=== PATIENT | female | born 1940 | race Caucasian/White ===

== ENCOUNTER → 2016-05-31 | Outpatient (CLI) | payer MEDICARE, BC ==
[~2016-05-31] MED LIST: ADVAIR 100/501 E1 INH; DIOVAN80 MG PO; HYDROCODONE BIT1 T11 PO; HYDRODIURIL25 MG PO; INDOCIN50 MG PO; LEVOTHYROXINE0.1 MG PO; MEDROL DOSEPAK4 MG PO; MULTIPLE VITAMI1 T17 PO; OSCAL/D,OYSTER250 MG PO; PRILOSEC20 M1 PO; TESSALON PERLE100 M1 PO; TESSALON PERLE100 MG PO
== END | disposition home or self-care (01) ==
LOC: MAMMO 05-28 14:30
DX: Z12.31 Encounter for screening mammogram for malignant neoplasm of breast (principal); R92.1 Mammographic calcification found on diagnostic imaging of breast

== ENCOUNTER → 2017-03-14 | Outpatient (CLI) | payer MEDICARE, BC ==
[2017-03-14 08:54] LABS: HEMATOCRIT 34.6 % (37.0-47.0); HEMOGLOBIN 11.5 g/dl (12.0-16.0); MEAN CELL VOLUME 96.6 fl (81.0-99.0); MEAN CORPUSCULAR HGB 32.1 pg (27.0-31.0); MEAN CORPUSCULAR HGB CONC 33.2 g/dl (33.0-37.0); MEAN PLATELET VOLUME 10.2 fl (9.6-12.3); RED BLOOD COUNT 3.58 10*6/uL (4.10-5.10); RED CELL DISTRI WIDTH 13.3 % (0-14.5); WHITE BLOOD COUNT 4.7 10*3/uL (4.8-10.8)
[2017-03-14 09:15] LABS: ALBUMIN 3.6 gm/dl (3.1-4.5); CREATININE 1.83 mg/dL (0.55-1.02); POTASSIUM 4.4 mmol/L (3.5-5.1); TOTAL PROTEIN 6.9 gm/dL (6.4-8.2)
== END | disposition home or self-care (01) ==
LOC: LAB 02:00
PROVIDERS: Family Medicine
DX: I12.9 Hypertensive chronic kidney disease with stage 1 through stage 4 chronic kidney disease, or unspecified chronic kidney disease (principal); N18.3 Chronic kidney disease, stage 3 (moderate); J44.9 Chronic obstructive pulmonary disease, unspecified

== ENCOUNTER → 2017-04-23 | Outpatient (CLI) | payer MEDICARE, BC ==
[2017-04-23 10:13] LABS: HEMATOCRIT 34.5 % (37.0-47.0); HEMOGLOBIN 11.3 g/dl (12.0-16.0); MEAN CELL VOLUME 97.7 fl (81.0-99.0); MEAN CORPUSCULAR HGB CONC 32.8 g/dl (33.0-37.0); RED BLOOD COUNT 3.53 10*6/uL (4.10-5.10); RED CELL DISTRI WIDTH 13.6 % (0-14.5); WHITE BLOOD COUNT 5.6 10*3/uL (4.8-10.8)
[2017-04-23 10:41] LABS: ALBUMIN 3.9 gm/dl (3.1-4.5); CREATININE 1.74 mg/dL (0.55-1.02); POTASSIUM 4.3 mmol/L (3.5-5.1)
[2017-04-23 10:42] LABS: TOTAL PROTEIN 7.3 gm/dL (6.4-8.2)
== END | disposition home or self-care (01) ==
LOC: LAB 09:42
PROVIDERS: Family Medicine
DX: E78.00 Pure hypercholesterolemia, unspecified (principal); N18.3 Chronic kidney disease, stage 3 (moderate); D64.9 Anemia, unspecified; R53.83 Other fatigue

== ENCOUNTER → 2017-07-24 | Outpatient (CLI) | payer MEDICARE, BC ==
[2017-07-24 09:31] LABS: POTASSIUM 4.2 mmol/L (3.5-5.1)
[2017-07-24 09:42] LABS: ALBUMIN 3.8 gm/dl (3.1-4.5); CREATININE 1.8 mg/dL (0.55-1.02); PHOSPHOROUS 3.1 mg/dL (2.5-4.9)
== END | disposition home or self-care (01) ==
LOC: LAB 08:19
PROVIDERS: Family Medicine
DX: N18.3 Chronic kidney disease, stage 3 (moderate) (principal)

== ENCOUNTER → 2018-01-22 | Outpatient (CLI) | payer MEDICARE, BC ==
[2018-01-22 09:07] LABS: HEMATOCRIT 35.5 % (37.0-47.0); HEMOGLOBIN 11.8 g/dl (12.0-16.0); MEAN CELL VOLUME 99.2 fl (81.0-99.0); MEAN CORPUSCULAR HGB CONC 33.2 g/dl (33.0-37.0); MEAN PLATELET VOLUME 9.5 fl (9.6-12.3); RED BLOOD COUNT 3.58 10*6/uL (4.10-5.10); RED CELL DISTRI WIDTH 13.2 % (0-14.5); WHITE BLOOD COUNT 6.1 10*3/uL (4.8-10.8)
[2018-01-22 09:33] LABS: ALBUMIN 3.8 gm/dl (3.1-4.5); POTASSIUM 4.7 mmol/L (3.5-5.1); TOTAL PROTEIN 7.4 gm/dL (6.4-8.2)
== END | disposition home or self-care (01) ==
LOC: LAB 01:02
PROVIDERS: Family Medicine
DX: I12.9 Hypertensive chronic kidney disease with stage 1 through stage 4 chronic kidney disease, or unspecified chronic kidney disease (principal); N18.3 Chronic kidney disease, stage 3 (moderate); E78.00 Pure hypercholesterolemia, unspecified

== ENCOUNTER → 2018-09-02 | Outpatient (CLI) | payer MEDICARE, BC | END | disposition home or self-care (01) | LOC: RAD 15:47 | DX: R06.02 Shortness of breath (principal); R06.2 Wheezing ==

== ENCOUNTER → 2019-01-22 | Outpatient (CLI) | payer MEDICARE, BC ==
[2019-01-22 09:15] LABS: HEMATOCRIT 33.8 % (37.0-47.0); MEAN CORPUSCULAR HGB 32.5 pg (27.0-31.0); MEAN CORPUSCULAR HGB CONC 32.5 g/dl (33.0-37.0); MEAN PLATELET VOLUME 10.1 fl (9.6-12.3); RED BLOOD COUNT 3.38 10*6/uL (4.10-5.10); WHITE BLOOD COUNT 5.2 10*3/uL (4.8-10.8)
[2019-01-22 09:51] LABS: ALBUMIN 3.7 gm/dl (3.1-4.5); CREATININE 2.08 mg/dL (0.55-1.02); FREE T4 0.98 ng/dl (0.76-1.46); POTASSIUM 4.4 mmol/L (3.5-5.1); TOTAL PROTEIN 7.3 gm/dL (6.4-8.2)
[2019-01-22 09:56] LABS: THYROID STIM HORMONE (HS) 4.73 uIU/ml (0.358-4.75)
== END | disposition home or self-care (01) ==
LOC: LAB 08:42
PROVIDERS: Nurse Practitioner Family
DX: E03.9 Hypothyroidism, unspecified (principal); I10 Essential (primary) hypertension; E55.9 Vitamin D deficiency, unspecified

== ENCOUNTER → 2019-04-20 | Outpatient (CLI) | payer MEDICARE, BC ==
[2019-04-20 09:54] LABS: HEMATOCRIT 35.2 % (37.0-47.0); HEMOGLOBIN 11.2 g/dl (12.0-16.0); MEAN CELL VOLUME 101.4 fl (81.0-99.0); MEAN CORPUSCULAR HGB 32.3 pg (27.0-31.0); MEAN CORPUSCULAR HGB CONC 31.8 g/dl (33.0-37.0); MEAN PLATELET VOLUME 9.9 fl (9.6-12.3); RED BLOOD COUNT 3.47 10*6/uL (4.10-5.10); RED CELL DISTRI WIDTH 13.7 % (0-14.5); WHITE BLOOD COUNT 10.9 10*3/uL (4.8-10.8)
[2019-04-20 10:13] LABS: POTASSIUM 4.4 mmol/L (3.5-5.1)
[2019-04-20 10:23] LABS: URIC ACID 5.9 mg/dL (2.6-6.0)
[2019-04-20 10:25] LABS: URINE CREATININE RANDOM 94.3 mg/dL
[2019-04-20 10:31] LABS: ALBUMIN 3.6 gm/dl (3.1-4.5); CREATININE 2.01 mg/dL (0.55-1.02); FREE T4 1.22 ng/dl (0.76-1.46); THYROID STIM HORMONE (HS) 4.18 uIU/ml (0.358-4.75); TOTAL PROTEIN 6.9 gm/dL (6.4-8.2)
[2019-04-20 11:15] LABS: FERRITIN 345.4 ng/mL (10.0-291.0)
[2019-04-20 11:16] LABS: PTH INTACT 239.7 pg/mL (18.5-88.0)
[2019-04-20 13:15] LABS: BACTERIA 3+; WBC 41-50 wbc/hpf (0-5)
[2019-04-20 13:16] LABS: CLARITY SL CLOUDY (CLEAR); COLOR YELLOW (YELLOW)
[2019-04-20 13:17] LABS: BILIRUBIN NEGATIVE (NEGATIVE); BLOOD TRACE-INTACT (NEGATIVE); GLUCOSE NEGATIVE (NEGATIVE); KETONE NEGATIVE (NEGATIVE); LEUKO ESTERASE 2+ (NEGATIVE); NITRITE NEGATIVE (NEGATIVE); UROBILINOGEN 0.2 E.U./dl (0.2-1.0)
== END | disposition home or self-care (01) ==
LOC: LAB 00:11
PROVIDERS: Family Medicine; Internal Medicine Nephrology
DX: D63.1 Anemia in chronic kidney disease (principal); N18.3 Chronic kidney disease, stage 3 (moderate); E78.00 Pure hypercholesterolemia, unspecified; E55.9 Vitamin D deficiency, unspecified; N25.81 Secondary hyperparathyroidism of renal origin; M10.9 Gout, unspecified; Z79.899 Other long term (current) drug therapy

== ENCOUNTER 2019-08-06 18:15 | Emergency (ER) | payer MEDICARE, BC ==
[~2019-08-06] VITALS: Ht 175.2 cm; Wt 90.7 kg
[2019-08-06] MEDS ORDERED: 3-DAY VAGINAL C21 GM V (19:10)
[2019-08-06] MEDS ORDERED: NYSTATIN CREAM15 GM T (19:10)
[2019-08-06] MEDS ORDERED: VISTARIL25 MG PO (19:11)
[2019-08-06 19:58] LABS: BILIRUBIN NEGATIVE (NEGATIVE); BLOOD 1+ (NEGATIVE); CLARITY CLEAR (CLEAR); COLOR YELLOW (YELLOW); GLUCOSE TRACE (NEGATIVE); KETONE NEGATIVE (NEGATIVE); LEUKO ESTERASE 1+ (NEGATIVE); NITRITE NEGATIVE (NEGATIVE); SPECIFIC GRAVITY 1.025 (1.005-1.030); UROBILINOGEN 0.2 E.U./dl (0.2-1.0)
[2019-08-06 20:01] LABS: BACTERIA 1+; EPITHELIAL CELLS 16-20; WBC 21-30 wbc/hpf (0-5)
== END 2019-08-06 19:55 ==
LOC: ED 18:15
PROVIDERS: Nurse Practitioner Family
DX: L30.8 Other specified dermatitis (principal); B37.9 Candidiasis, unspecified; Z88.1 Allergy status to other antibiotic agents; Z79.899 Other long term (current) drug therapy

== ENCOUNTER 2019-08-10 11:23 | Inpatient (IN) | payer MEDICARE, BC ==
[~2019-08-10] VITALS: Ht 175.2 cm; Wt 93.6 kg
[~2019-08-10 11:23] MED LIST changes: +3-DAY VAGINAL C21 GM V; +NYSTATIN CREAM15 GM T; +VISTARIL25 MG PO
[2019-08-10 11:32] VITALS: BP 110/55; BP 132/93
[2019-08-10 12:03] LABS: BASO % 0.4 % (0.0-1.0); EOS % 0.1 % (1.0-4.0); HEMATOCRIT 30.3 % (37.0-47.0); LYMPH # 0.9 10*3/uL (1.3-4.4); LYMPH % 9.1 % (27.0-41.0); MEAN CELL VOLUME 100.7 fl (81.0-99.0); MEAN CORPUSCULAR HGB 31.9 pg (27.0-31.0); MEAN CORPUSCULAR HGB CONC 31.7 g/dl (33.0-37.0); MEAN PLATELET VOLUME 10.2 fl (9.6-12.3); MONO # 0.6 10*3/uL (0.1-1.0); MONO % 6.1 % (3.0-9.0); NEUT # 7.8 10*3/uL (2.3-7.9); NEUT % 83.1 % (47.0-73.0); PLATELET COUNT AUTOMATED 365 10*3/uL (130-400); RED BLOOD COUNT 3.01 10*6/uL (4.10-5.10); RED CELL DISTRI WIDTH 13.1 % (0-14.5); WHITE BLOOD COUNT 9.4 10*3/uL (4.8-10.8)
[2019-08-10 12:13] LABS: ACT PARTIAL THROMBO TIME 28.4 SECONDS (20.0-32.1)
[2019-08-10 12:20] LABS: ALBUMIN 2.7 gm/dl (3.1-4.5); ALKALINE PHOSPHATASE 69 U/L (45-117); BUN 44 mg/dl (7-24); CHLORIDE 114 mmol/L (98-107); CREATININE 3.51 mg/dL (0.55-1.02); LIPASE 81 U/L (73-393); POTASSIUM 4.5 mmol/L (3.5-5.1); SGOT/AST 49 IU/L (3-35); SGPT/ALT 63 U/L (12-78); SODIUM 140 mmol/L (136-145); TOTAL PROTEIN 7.3 gm/dL (6.4-8.2); TROPONIN I < 0.015 ng/ml (<0.045)
--- NOTE | 2019-08-10 13:06 | NUR ---
YEAST RASH TO ABDOMINAL FOLD AND GROIN BILATERALLY. AREA IS RED BUT BLANCHABLE. NO OPEN AREAS NOTED.
[2019-08-10 14:09] LABS: BILIRUBIN NEGATIVE (NEGATIVE); BLOOD 1+ (NEGATIVE); CLARITY CLOUDY (CLEAR); COLOR YELLOW (YELLOW); GLUCOSE NEGATIVE (NEGATIVE); KETONE NEGATIVE (NEGATIVE); SPECIFIC GRAVITY 1.025 (1.005-1.030)
[2019-08-10 14:10] LABS: LEUKO ESTERASE 2+ (NEGATIVE); NITRITE NEGATIVE (NEGATIVE); UROBILINOGEN 0.2 E.U./dl (0.2-1.0)
[2019-08-10 14:12] LABS: BACTERIA 4+; RBC 21-30 rbc/hpf (0-2); WBC TNTC wbc/hpf (0-5)
[2019-08-10] MEDS ORDERED: PROAIR HFA8.5 GM INH (15:03)
[2019-08-10] MEDS ORDERED: LOSARTAN POTAS100 M1 PO (15:04)
[2019-08-10 16:00] VITALS: BP 132/68
[2019-08-10 20:00] VITALS: BP 130/63
--- NOTE | 2019-08-10 20:55 | NUR ---
PATIENT MEDICATED WITH VISTAR[facility] FOR C/O ITCHINESS. WILL CHECK EFFECTIVENESS.
[2019-08-11] VITALS: BP 131/61
--- NOTE | 2019-08-11 05:48 | NUR ---
DOMINIQUE RIGGINS [id number] Please refer to the physician's history and physical for past medical history, comorbid conditions, and allergies. Diagnosis: JANET,UTI,EXTENDED SPECTRUM BETA-LACTAMASE PRODUCING Raheel Score: 23,LOW OR NO RISK WOUND DESCRIPTIONS: Wound Number:1 Suprapubic area red and blanchable areas noted. No drainage noted at time of assessment. No odor noted at time of assessment. Wound Number: 2 Location of the wound: left and right buttocks Type of wound: fungal Thickness: Partial Size: 9.5cm x 11.0cm x 0.1cm Tunneling: none Undermining: none Sinus Tract: none Presence of Exudate: Serosanguneious Amount: Light Color: Red Odor: None Periwound Skin Appearance: Normal Wound edges: approximated Pain (associated with wound): none at time of assessment How does patient state this happened? pt states this started after she received antibiotic she stated she even followed up with the gyno and they prescriber her a dose of diflucan and it helped. Surface the patient is resting on: Isoflex SKIN PREVENTION RECOMMENDATION: 1. Pressure redistribution support surface as appropriate 2. Elevate heels 3. Remove boots/TEDS every shift and reapply 4. Head of bed 30 degrees as tolerated 5. Assess nutrition and hydration 6. Manage moisture 7. Avoid the use of containment devices while in bed 8. Use absorptive products on surfaces limit layers of linens on bed 9. Turn and reposition every 1-2 hours in bed and every 1 hour in chair as tolerated 10. Weight shifts every 15 minutes while up in chair 11. Offloading with pillows or device to keep heels elevated off bed 12. Monitor skin at least every shift 13. Inspect under medical devices twice a day WOUND TREATMENT RECOMMENDATIONS: d/c nystatin cream may need oral antifungal medications. Wheelchair cushion when oob. Patient states if areas gets worse she will follow up in the wound care center.
[2019-08-11 07:10] LABS: CREATININE 3.33 mg/dL (0.55-1.02); POTASSIUM 4.4 mmol/L (3.5-5.1)
--- NOTE | 2019-08-11 07:51 | NUR ---
Nursing screen received and chart reviewed. Patient admitted for a UTI. If patient has a decline in ADLs, transfers, or functional mobility, please send OT orders. Thank you. Brook Kwan, OTR/L
--- NOTE | 2019-08-11 07:52 | NUR ---
PHYSICAL THERAPY Screen received pt admitted from home with UTI +ESBL with acute cystitis. Please consult PT if pt has a decline in functional status below baseline thank you. Tari Moore PT
[2019-08-11 08:00] VITALS: BP 130/62
--- NOTE | 2019-08-11 09:00 | NUR ---
Strip Polisher in to talk to patient. Patient states lives at home with her . There are basement steps in the home. Physician: Dr. Javi Srinivasan [facility] Home health services: none Patient's level of ADLs: INDEPENDENT Patient has working utilities: yes DME: [facility] Follow-up physician's appointment after d/c: she prefers to make her own follow up appt after discharge Does patient want to access PORTAL?: no Discharge plan discussed with patient. She lives at home with her . She is independent in her ADLs and ambulation. Discussed home health care services if she needed home IV antibiotics and she is agreeable. When provided with a list of agencies she chose [facility]. When medically stable she will be discharged to home. She states either her son or [id number] will provide transportation on discharge. FREEMAN STARR
[2019-08-11 12:00] VITALS: BP 140/76
[2019-08-11 16:00] VITALS: BP 124/66
[2019-08-11 20:00] VITALS: BP 138/60
--- NOTE | 2019-08-11 21:36 | NUR ---
PATIENT C/O ITCHINESS. MEDICATED WITH VISTARIL PER REQUEST. WILL CHECK EFFECTIVENESS.
[2019-08-12] VITALS: BP 151/70
--- NOTE | 2019-08-12 | NUR ---
PATIENT STATES VISTARIL WAS EFFECTIVE.
[2019-08-12 08:00] VITALS: BP 154/74
--- NOTE | 2019-08-12 08:00 | NUR ---
Patient resting quietly with no c/o discomfort. Respirations easy and regular. Vital signs stable. No overt distress. LUCY WASHINGTON
[2019-08-12 08:46] LABS: CREATININE 3.25 mg/dL (0.55-1.02); POTASSIUM 4.9 mmol/L (3.5-5.1)
--- NOTE | 2019-08-12 09:00 | NUR ---
Film Rental Clerk in to see patient. No new needs or request at this time. When medically stable she will be discharged to home with [facility] services.
[2019-08-12 12:00] VITALS: BP 156/70
[2019-08-12 16:00] VITALS: BP 153/78
[2019-08-12 20:00] VITALS: BP 176/82
[2019-08-13] VITALS: BP 160/82
[2019-08-13 07:34] LABS: CREATININE 2.69 mg/dL (0.55-1.02); POTASSIUM 4.7 mmol/L (3.5-5.1)
--- NOTE | 2019-08-13 07:35 | NUR ---
Shift chart check completed.
[2019-08-13 08:00] VITALS: BP 150/84
--- NOTE | 2019-08-13 08:30 | NUR ---
PT RESTING IN BED. VOICES NO CONCERNS AT THIS TIME. RESPS EASY AND NON LABORED. NO S/S OF DISTRESS NOTED.VSS. WHITE BOARD UPDATED.POC DISCUSSED W PT. CALL LIGHT RONNY LOTT. PT STATES SHE WANTS TO GO HOME TODAY.
--- NOTE | 2019-08-13 09:00 | NUR ---
Radio Presenter in to see patient. No new needs or request at this time. She has a midline in. No scripts in chart for IV antibiotics. When medically stable she will be discharged to home with [facility].
--- NOTE | 2019-08-13 11:31 | NUR ---
No script in chart. Notified Dr. Ramos who is working with Dr. Flores.
--- NOTE | 2019-08-13 11:37 | NUR ---
Discussed antibiotic prescription with Dr. Flores. Awaiting script.
--- NOTE | 2019-08-13 11:48 | NUR ---
Faxed home health order to [facility] and faxed [facility] to check cost for ertapenem 500 mg IV daily. Discussed discharge today or tomorrow with Dr. Siegel and she is not ready to be discharged today.
[2019-08-13] MEDS ORDERED: ERTAPENEM1 GM IV (11:52)
[2019-08-13 12:00] VITALS: BP 154/64; BP 171/74
--- NOTE | 2019-08-13 14:45 | NUR ---
Received call from Lydia at [facility] patient's antibiotic is covered at 100%.
--- NOTE | 2019-08-13 15:19 | NUR ---
Notified patient her IV antibiotics are covered at 100% and that [facility] and [facility] will be reaching out to her for her start of care. Spoke to Verna at [facility] and patient is being put on OV schedule for Friday.
[2019-08-13 16:00] VITALS: BP 148/76; BP 168/77
--- NOTE | 2019-08-13 18:04 | NUR ---
PT RESTING IN CHAIR. VOICES NO CONCERNS AT THIS TIME. RESPS EASY AND NON LABORED. NO S/S OF DISTRESS NOTED.VSS. CALL LIGHT WITHIN REACH
[2019-08-13 20:00] VITALS: BP 180/75
[2019-08-14] VITALS: BP 177/78
[2019-08-14] MEDS ORDERED: AMLODIPINE BESYL5 MG PO (05:55)
[2019-08-14] MEDS ORDERED: CLONIDINE HYDR0.1 MG PO (06:04)
[2019-08-14 07:06] LABS: POTASSIUM 4.8 mmol/L (3.5-5.1)
[2019-08-14 07:15] LABS: CREATININE 2.43 mg/dL (0.55-1.02)
--- NOTE | 2019-08-14 10:00 | NUR ---
Discharge instructions reviewed with patient/family. Patient receptive and verbalizes understanding. Follow-up care arranged. Written instructions given to patient/family. ISATU LANGSTON
--- NOTE | 2019-08-14 12:02 | NUR ---
[facility] AND [facility] BOTH NOTIFIED THAT PT WAS DISCHARGED TODAY.
== END 2019-08-14 10:00 | disposition home or self-care (01) | DRG 682 ==
LOC: ED 11:23 → EDHOLD 12:31 → 5E 12:31
PROVIDERS: Nurse Practitioner Family; ADMIT Internal Medicine
DX: N17.0 Acute kidney failure with tubular necrosis (principal); E43 Unspecified severe protein-calorie malnutrition; N30.00 Acute cystitis without hematuria; Z16.12 Extended spectrum beta lactamase (ESBL) resistance; N18.4 Chronic kidney disease, stage 4 (severe); E03.9 Hypothyroidism, unspecified; B96.20 Unspecified Escherichia coli [E. coli] as the cause of diseases classified elsewhere; E66.9 Obesity, unspecified; J44.9 Chronic obstructive pulmonary disease, unspecified; I12.9 Hypertensive chronic kidney disease with stage 1 through stage 4 chronic kidney disease, or unspecified chronic kidney disease; K21.0 Gastro-esophageal reflux disease with esophagitis; D64.9 Anemia, unspecified; B37.3 Candidiasis of vulva and vagina; B95.1 Streptococcus, group B, as the cause of diseases classified elsewhere; Z88.1 Allergy status to other antibiotic agents; Z90.710 Acquired absence of both cervix and uterus; Z79.899 Other long term (current) drug therapy; Z68.30 Body mass index [BMI] 30.0-30.9, adult

== ENCOUNTER 2019-08-26 17:28 | Inpatient (IN) | payer MEDICARE, BC ==
[~2019-08-26] VITALS: Ht 175.3 cm; Wt 93.9 kg
[~2019-08-26 17:28] MED LIST changes: +AMLODIPINE BESYL5 MG PO; +CLONIDINE HYDR0.1 MG PO; +ERTAPENEM1 GM IV; +LOSARTAN POTAS100 M1 PO; +PROAIR HFA8.5 GM INH
[2019-08-26 17:38] VITALS: BP 131/70
[2019-08-26 18:07] LABS: BILIRUBIN NEGATIVE (NEGATIVE); BLOOD 1+ (NEGATIVE); CLARITY CLEAR (CLEAR); COLOR YELLOW (YELLOW); GLUCOSE NEGATIVE (NEGATIVE); KETONE NEGATIVE (NEGATIVE); LEUKO ESTERASE TRACE (NEGATIVE); NITRITE NEGATIVE (NEGATIVE); SPECIFIC GRAVITY 1.015 (1.005-1.030); UROBILINOGEN 0.2 E.U./dl (0.2-1.0)
[2019-08-26 18:09] LABS: BACTERIA 2+; COARSE GRANULAR CAST 0-2
[2019-08-26 18:19] LABS: BASO # 0.1 10*3/uL (0.0-0.1); BASO % 0.8 % (0.0-1.0); EOS # 0.4 10*3/uL (0.0-0.4); EOS % 3.1 % (1.0-4.0); HEMATOCRIT 28.4 % (37.0-47.0); LYMPH # 1.4 10*3/uL (1.3-4.4); LYMPH % 11.5 % (27.0-41.0); MEAN CELL VOLUME 99.3 fl (81.0-99.0); MEAN CORPUSCULAR HGB 31.5 pg (27.0-31.0); MEAN CORPUSCULAR HGB CONC 31.7 g/dl (33.0-37.0); MEAN PLATELET VOLUME 10.2 fl (9.6-12.3); MONO # 1.2 10*3/uL (0.1-1.0); MONO % 10.1 % (3.0-9.0); NEUT # 8.7 10*3/uL (2.3-7.9); NEUT % 74.1 % (47.0-73.0); PLATELET COUNT AUTOMATED 280 10*3/uL (130-400); RED BLOOD COUNT 2.86 10*6/uL (4.10-5.10); WHITE BLOOD COUNT 11.7 10*3/uL (4.8-10.8)
[2019-08-26 18:30] LABS: ACT PARTIAL THROMBO TIME 27.8 SECONDS (20.0-32.1)
[2019-08-26 18:36] LABS: ALBUMIN 2.9 gm/dl (3.1-4.5); ALKALINE PHOSPHATASE 67 U/L (45-117); BUN 26 mg/dl (7-24); CHLORIDE 109 mmol/L (98-107); CREATININE 2.76 mg/dL (0.55-1.02); LIPASE 81 U/L (73-393); POTASSIUM 3.7 mmol/L (3.5-5.1); SGOT/AST 9 IU/L (3-35); SGPT/ALT 14 U/L (12-78); SODIUM 138 mmol/L (136-145); TOTAL PROTEIN 7.4 gm/dL (6.4-8.2)
[2019-08-26 18:37] LABS: TROPONIN I < 0.015 ng/ml (<0.045)
[2019-08-26 19:30] VITALS: BP 139/89
[2019-08-26 21:53] VITALS: BP 136/59
[2019-08-26] MEDS ORDERED: IRON325 M1 PO (22:32)
[2019-08-26] MEDS ORDERED: VITAMIN D310 MC1 PO (22:34)
[2019-08-26] MEDS ORDERED: NYSTATIN CREAM15 GM T (22:37)
[2019-08-27 07:19] LABS: BASO # 0.1 10*3/uL (0.0-0.1); EOS # 0.4 10*3/uL (0.0-0.4); EOS % 4.1 % (1.0-4.0); HEMATOCRIT 28.4 % (37.0-47.0); LYMPH # 1.3 10*3/uL (1.3-4.4); LYMPH % 14.5 % (27.0-41.0); MEAN CELL VOLUME 100.4 fl (81.0-99.0); MEAN CORPUSCULAR HGB 31.4 pg (27.0-31.0); MEAN CORPUSCULAR HGB CONC 31.3 g/dl (33.0-37.0); MEAN PLATELET VOLUME 10.6 fl (9.6-12.3); MONO # 0.9 10*3/uL (0.1-1.0); MONO % 9.7 % (3.0-9.0); NEUT # 6.3 10*3/uL (2.3-7.9); NEUT % 70.1 % (47.0-73.0); PLATELET COUNT AUTOMATED 276 10*3/uL (130-400); RED BLOOD COUNT 2.83 10*6/uL (4.10-5.10)
[2019-08-27 07:35] LABS: CREATININE 2.63 mg/dL (0.55-1.02); POTASSIUM 3.8 mmol/L (3.5-5.1)
[2019-08-27 08:00] VITALS: BP 117/53
[2019-08-27 12:00] VITALS: BP 126/59
[2019-08-27 16:00] VITALS: BP 119/62
[2019-08-27 20:00] VITALS: BP 120/54
[2019-08-28] VITALS: BP 125/56
[2019-08-28 06:28] LABS: BASO # 0.1 10*3/uL (0.0-0.1); BASO % 0.8 % (0.0-1.0); EOS # 0.5 10*3/uL (0.0-0.4); EOS % 6.6 % (1.0-4.0); HEMATOCRIT 26.4 % (37.0-47.0); LYMPH # 1.1 10*3/uL (1.3-4.4); MEAN CORPUSCULAR HGB 31.1 pg (27.0-31.0); MEAN CORPUSCULAR HGB CONC 31.1 g/dl (33.0-37.0); MEAN PLATELET VOLUME 10.5 fl (9.6-12.3); MONO # 0.8 10*3/uL (0.1-1.0); MONO % 10.8 % (3.0-9.0); NEUT # 4.6 10*3/uL (2.3-7.9); NEUT % 65.4 % (47.0-73.0); PLATELET COUNT AUTOMATED 250 10*3/uL (130-400); RED BLOOD COUNT 2.64 10*6/uL (4.10-5.10); RED CELL DISTRI WIDTH 12.7 % (0-14.5); WHITE BLOOD COUNT 7.1 10*3/uL (4.8-10.8)
[2019-08-28 06:55] LABS: CREATININE 2.8 mg/dL (0.55-1.02); POTASSIUM 3.5 mmol/L (3.5-5.1)
[2019-08-28 08:00] VITALS: BP 114/50
[2019-08-28 12:00] VITALS: BP 121/52
[2019-08-28 16:00] VITALS: BP 119/76
[2019-08-28 20:00] VITALS: BP 119/56
[2019-08-29] VITALS: BP 119/40
[2019-08-29] MEDS ORDERED: PROTONIX40 MG PO (05:23)
[2019-08-29] MEDS ORDERED: FLAGYL500 MG PO (05:24)
[2019-08-29] MEDS ORDERED: CARAFATE1 GM PO (05:30)
[2019-08-29 06:24] LABS: BASO # 0.1 10*3/uL (0.0-0.1); BASO % 1.4 % (0.0-1.0); EOS # 0.5 10*3/uL (0.0-0.4); EOS % 10.1 % (1.0-4.0); HEMATOCRIT 25.3 % (37.0-47.0); LYMPH % 19.4 % (27.0-41.0); MEAN CELL VOLUME 99.2 fl (81.0-99.0); MEAN CORPUSCULAR HGB 31.4 pg (27.0-31.0); MEAN CORPUSCULAR HGB CONC 31.6 g/dl (33.0-37.0); MEAN PLATELET VOLUME 10.4 fl (9.6-12.3); MONO # 0.7 10*3/uL (0.1-1.0); MONO % 13.1 % (3.0-9.0); NEUT # 2.8 10*3/uL (2.3-7.9); NEUT % 55.2 % (47.0-73.0); PLATELET COUNT AUTOMATED 247 10*3/uL (130-400); RED BLOOD COUNT 2.55 10*6/uL (4.10-5.10); RED CELL DISTRI WIDTH 12.9 % (0-14.5)
[2019-08-29 06:39] LABS: CREATININE 2.7 mg/dL (0.55-1.02); POTASSIUM 3.7 mmol/L (3.5-5.1)
[2019-08-29 08:00] VITALS: BP 150/70
== END 2019-08-29 11:36 | disposition home or self-care (01) | DRG 391 ==
LOC: ED 17:28 → EDHOLD 21:31 → 4E 22:06
PROVIDERS: Emergency Medicine; ADMIT Internal Medicine
DX: K52.9 Noninfective gastroenteritis and colitis, unspecified (principal); K57.33 Diverticulitis of large intestine without perforation or abscess with bleeding; N18.4 Chronic kidney disease, stage 4 (severe); K29.00 Acute gastritis without bleeding; I12.9 Hypertensive chronic kidney disease with stage 1 through stage 4 chronic kidney disease, or unspecified chronic kidney disease; E03.9 Hypothyroidism, unspecified; D50.9 Iron deficiency anemia, unspecified; N39.3 Stress incontinence (female) (male); Z88.1 Allergy status to other antibiotic agents; Z90.710 Acquired absence of both cervix and uterus; Z83.49 Family history of other endocrine, nutritional and metabolic diseases

== ENCOUNTER → 2019-11-22 | Outpatient (CLI) | payer MEDICARE, BC ==
[~2019-11-22] MED LIST changes: +CARAFATE1 GM PO; +COZAAR100 MG PO; +FLAGYL500 MG PO; +IRON325 M1 PO; +PROTONIX40 MG PO; +VITAMIN D310 MC1 PO
== END | disposition home or self-care (01) ==
LOC: COVID19 00:41
PROVIDERS: ATTEND Internal Medicine Gastroenterology
DX: Z20.828 Contact with and (suspected) exposure to other viral communicable diseases (principal)

== ENCOUNTER → 2019-11-26 | Day surgery (SDC) | payer MEDICARE, BC ==
[~2019-11-26] VITALS: Ht 172.7 cm; Wt 89.4 kg
[2019-11-26 08:15] VITALS: BP 135/77
[2019-11-26 10:05] VITALS: BP 129/48
[2019-11-26 10:19] VITALS: BP 123/56
[2019-11-26 10:32] VITALS: BP 129/59
== END | disposition home or self-care (01) ==
LOC: SDC 11-22 08:45
PROVIDERS: ATTEND Internal Medicine Gastroenterology
DX: Z12.11 Encounter for screening for malignant neoplasm of colon (principal); D12.5 Benign neoplasm of sigmoid colon; D12.4 Benign neoplasm of descending colon; I12.9 Hypertensive chronic kidney disease with stage 1 through stage 4 chronic kidney disease, or unspecified chronic kidney disease; N18.9 Chronic kidney disease, unspecified; J44.9 Chronic obstructive pulmonary disease, unspecified; K64.8 Other hemorrhoids; G47.30 Sleep apnea, unspecified; K21.9 Gastro-esophageal reflux disease without esophagitis; M19.90 Unspecified osteoarthritis, unspecified site; Z86.010 Personal history of colon polyps; Z98.890 Other specified postprocedural states; Z79.899 Other long term (current) drug therapy; Z88.8 Allergy status to other drugs, medicaments and biological substances

== ENCOUNTER → 2020-03-16 | Outpatient (CLI) | payer MEDICARE, BC ==
[2020-03-16 15:25] LABS: BASO # 0.1 10*3/uL (0.0-0.1); BASO % 0.9 % (0.0-1.0); EOS # 0.3 10*3/uL (0.0-0.4); EOS % 3.4 % (1.0-4.0); HEMATOCRIT 32.9 % (37.0-47.0); LYMPH # 1.7 10*3/uL (1.3-4.4); LYMPH % 21.5 % (27.0-41.0); MEAN CELL VOLUME 100.9 fl (81.0-99.0); MEAN CORPUSCULAR HGB 32.5 pg (27.0-31.0); MEAN CORPUSCULAR HGB CONC 32.2 g/dl (33.0-37.0); MONO # 0.6 10*3/uL (0.1-1.0); MONO % 6.9 % (3.0-9.0); NEUT # 5.3 10*3/uL (2.3-7.9); PLATELET COUNT AUTOMATED 234 10*3/uL (130-400); RED BLOOD COUNT 3.26 10*6/uL (4.10-5.10); RED CELL DISTRI WIDTH 13.2 % (0-14.5)
[2020-03-17 08:09] LABS: HEP B CORE AB, IGM Negative (Negative); HEPATITIS B SURFACE AG Negative (Negative); HEPATITIS C VIRUS ANTIBODY <0.1 s/co (0.0-0.9)
[2020-03-17 13:06] LABS: ANTI-RNP ANTIBODIES 0.2 AI (0.0-0.9); RHEUMATOID ARTHRITIS FACTOR <10.0 IU/mL (0.0-13.9)
[2020-03-18 00:09] LABS: CCP ANTIBODIES IGG/IGA 5 units (0-19)
[2020-03-18 03:08] LABS: PTT-LA 38.7 sec (0.0-51.9)
[2020-03-18 08:12] LABS: DVVTMIXRFX CHG; LUPUS DRVVT 51.1 sec (0.0-47.0)
[2020-03-18 09:06] LABS: LUPUS REFLEX INTERPRETATION Comment: (.)
[2020-03-22 13:11] LABS: HLA-B27 ANTIGEN Negative (.)
== END | disposition home or self-care (01) ==
LOC: LAB 15:02
PROVIDERS: ATTEND Orthopaedic Surgery
DX: E03.9 Hypothyroidism, unspecified (principal); N18.9 Chronic kidney disease, unspecified; M87.852 Other osteonecrosis, left femur; M35.3 Polymyalgia rheumatica; R53.83 Other fatigue

== ENCOUNTER → 2021-04-16 | Outpatient (CLI) | payer MEDICARE, BC | END | disposition home or self-care (01) | LOC: CT 12:48 | PROVIDERS: ATTEND Urology | DX: N20.0 Calculus of kidney (principal); N28.1 Cyst of kidney, acquired; K80.50 Calculus of bile duct without cholangitis or cholecystitis without obstruction; K57.30 Diverticulosis of large intestine without perforation or abscess without bleeding ==

== ENCOUNTER → 2021-05-09 | Outpatient (CLI) | payer MEDICARE, BC | END | disposition home or self-care (01) | LOC: MRI 10:00 | PROVIDERS: ATTEND Urology | DX: N28.1 Cyst of kidney, acquired (principal); K80.20 Calculus of gallbladder without cholecystitis without obstruction; N26.1 Atrophy of kidney (terminal) ==

== ENCOUNTER 2021-06-27 04:15 | Observation (INO) | payer MEDICARE, BC ==
[~2021-06-27] VITALS: Ht 172.7 cm; Wt 92.7 kg
[~2021-06-27 04:15] MED LIST changes: -LEVOTHYROXINE0.1 MG PO; +LEVOTHYROXINE112 MC1 PO; -VITAMIN D310 MC1 PO; +VITAMIN D325 MCG PO
[2021-06-27 04:35] VITALS: BP 167/91
[2021-06-27 04:49] LABS: BASO # 0.1 10*3/uL (0.0-0.1); BASO % 1.1 % (0.0-1.0); EOS # 0.6 10*3/uL (0.0-0.4); EOS % 8.3 % (1.0-4.0); HEMATOCRIT 28.2 % (37.0-47.0); LYMPH # 1.4 10*3/uL (1.3-4.4); LYMPH % 20.1 % (27.0-41.0); MEAN CELL VOLUME 101.1 fl (81.0-99.0); MEAN CORPUSCULAR HGB 32.6 pg (27.0-31.0); MEAN CORPUSCULAR HGB CONC 32.3 g/dl (33.0-37.0); MEAN PLATELET VOLUME 9.1 fl (9.6-12.3); MONO # 0.5 10*3/uL (0.1-1.0); MONO % 7.6 % (3.0-9.0); NEUT # 4.4 10*3/uL (2.3-7.9); NEUT % 62.2 % (47.0-73.0); PLATELET COUNT AUTOMATED 302 10*3/uL (130-400); RED BLOOD COUNT 2.79 10*6/uL (4.10-5.10); RED CELL DISTRI WIDTH 13.8 % (0-14.5); WHITE BLOOD COUNT 7.1 10*3/uL (4.8-10.8)
[2021-06-27 05:00] LABS: ACT PARTIAL THROMBO TIME 26.9 SECONDS (20.0-32.1)
[2021-06-27 05:04] LABS: CREATININE 3.08 mg/dL (0.55-1.02); POTASSIUM 3.7 mmol/L (3.5-5.1)
[2021-06-27 06:22] VITALS: BP 99/52
[2021-06-27 08:11] VITALS: BP 138/64
[2021-06-27] MEDS ORDERED: PROAIR HFA8.5 GM INH (08:50)
[2021-06-27] MEDS ORDERED: ALLOPURINOL100 MG PO (08:51)
[2021-06-27] MEDS ORDERED: AMLODIPINE BESY10 MG PO (08:52)
[2021-06-27] MEDS ORDERED: VITAMIN B-121000 MC2 PO (08:56)
[2021-06-27 16:43] VITALS: BP 108/51
[2021-06-27 19:26] VITALS: BP 98/55
[2021-06-27 20:10] VITALS: BP 131/62
[2021-06-28] VITALS: BP 117/54
[2021-06-28 06:42] LABS: BASO % 0.7 % (0.0-1.0); EOS # 0.2 10*3/uL (0.0-0.4); EOS % 3.9 % (1.0-4.0); HEMATOCRIT 25.1 % (37.0-47.0); LYMPH # 1.1 10*3/uL (1.3-4.4); LYMPH % 18.9 % (27.0-41.0); MEAN CORPUSCULAR HGB 32.5 pg (27.0-31.0); MEAN CORPUSCULAR HGB CONC 31.9 g/dl (33.0-37.0); MONO # 0.8 10*3/uL (0.1-1.0); MONO % 13.5 % (3.0-9.0); NEUT # 3.5 10*3/uL (2.3-7.9); NEUT % 62.3 % (47.0-73.0); PLATELET COUNT AUTOMATED 270 10*3/uL (130-400); RED BLOOD COUNT 2.46 10*6/uL (4.10-5.10); RED CELL DISTRI WIDTH 13.9 % (0-14.5); WHITE BLOOD COUNT 5.7 10*3/uL (4.8-10.8)
[2021-06-28 06:52] LABS: CREATININE 3.21 mg/dL (0.55-1.02)
[2021-06-28 08:00] VITALS: BP 118/55
[2021-06-28] MEDS ORDERED: ELIQUIS2.5 M1 PO (10:32)
[2021-06-28 12:00] VITALS: BP 119/60
[2021-06-28 16:00] VITALS: BP 116/52
== END 2021-06-28 18:05 | disposition home or self-care (01) ==
LOC: ED 04:15 → EDHOLD 07:57 → 5E 17:11
PROVIDERS: Emergency Medicine; ADMIT Internal Medicine; ATTEND Internal Medicine
DX: R07.89 Other chest pain (principal); K52.9 Noninfective gastroenteritis and colitis, unspecified; I12.9 Hypertensive chronic kidney disease with stage 1 through stage 4 chronic kidney disease, or unspecified chronic kidney disease; N18.4 Chronic kidney disease, stage 4 (severe); M10.9 Gout, unspecified; J44.1 Chronic obstructive pulmonary disease with (acute) exacerbation; E03.9 Hypothyroidism, unspecified; K21.9 Gastro-esophageal reflux disease without esophagitis; K21.01 Gastro-esophageal reflux disease with esophagitis, with bleeding; Z77.22 Contact with and (suspected) exposure to environmental tobacco smoke (acute) (chronic); Z79.899 Other long term (current) drug therapy

== ENCOUNTER → 2022-03-25 | Outpatient (CLI) | payer MEDICARE, BC ==
[~2022-03-25] MED LIST changes: +ALLOPURINOL100 MG PO; +AMLODIPINE BESY10 MG PO; +ELIQUIS2.5 M1 PO; +VITAMIN B-121000 MC2 PO
[2022-03-25 13:17] LABS: HEMATOCRIT 31.9 % (37.0-47.0); MEAN CELL VOLUME 102.6 fl (81.0-99.0); MEAN CORPUSCULAR HGB 32.8 pg (27.0-31.0); MEAN PLATELET VOLUME 10.1 fl (9.6-12.3); RED BLOOD COUNT 3.11 10*6/uL (4.10-5.10); RED CELL DISTRI WIDTH 14.7 % (0-14.5); WHITE BLOOD COUNT 6.1 10*3/uL (4.8-10.8)
[2022-03-25 13:34] LABS: POTASSIUM 3.2 mmol/L (3.4-5.1); TOTAL PROTEIN 6.9 gm/dL (6.0-8.0)
== END | disposition home or self-care (01) ==
LOC: LAB 12:35
PROVIDERS: ATTEND Family Medicine
DX: N18.30 Chronic kidney disease, stage 3 unspecified (principal); D63.1 Anemia in chronic kidney disease; E87.5 Hyperkalemia

== ENCOUNTER 2023-01-31 16:01 | Emergency (ER) | payer MEDICARE, BC ==
[~2023-01-31] VITALS: Ht 172.7 cm; Wt 86.2 kg
[2023-01-31 18:18] LABS: BASO % 0.3 % (0.0-1.0); EOS # 0.1 10*3/uL (0.0-0.4); EOS % 0.4 % (1.0-4.0); LYMPH # 0.9 10*3/uL (1.3-4.4); MEAN CELL VOLUME 101.8 fl (81.0-99.0); MEAN CORPUSCULAR HGB 33.3 pg (27.0-31.0); MEAN CORPUSCULAR HGB CONC 32.8 g/dl (33.0-37.0); MEAN PLATELET VOLUME 9.7 fl (9.6-12.3); MONO # 0.8 10*3/uL (0.1-1.0); MONO % 6.8 % (3.0-9.0); NEUT # 10.3 10*3/uL (2.3-7.9); NEUT % 84.8 % (47.0-73.0); PLATELET COUNT AUTOMATED 268 10*3/uL (130-400); RED BLOOD COUNT 2.85 10*6/uL (4.10-5.10); RED CELL DISTRI WIDTH 15.2 % (0-14.5); WHITE BLOOD COUNT 12.1 10*3/uL (4.8-10.8)
[2023-01-31 18:26] LABS: BILIRUBIN Negative (Negative); BLOOD Trace-Lysed (Negative); CLARITY Clear (Clear); COLOR Yellow (Yellow); GLUCOSE 1+ (Negative); KETONE 1+ (Negative); LEUKO ESTERASE Trace (Negative); NITRITE Negative (Negative); PH 6.5 (4.5-8.0); SPECIFIC GRAVITY 1.015 (1.001-1.030); UROBILINOGEN 0.2 E.U./dl (0.0-1.0)
[2023-01-31 18:29] LABS: ACT PARTIAL THROMBO TIME 33.3 SECONDS (20.0-32.1)
[2023-01-31 18:40] LABS: TOTAL PROTEIN 7.3 gm/dL (6.0-8.0)
[2023-01-31 18:44] LABS: BACTERIA 3+; WBC 16-20 wbc/hpf (0-5)
== END 2023-01-31 23:31 | disposition home or self-care (01) ==
LOC: ED 16:01
PROVIDERS: Emergency Medicine
DX: R10.31 Right lower quadrant pain (principal); R10.2 Pelvic and perineal pain; J44.9 Chronic obstructive pulmonary disease, unspecified; I10 Essential (primary) hypertension; Z88.1 Allergy status to other antibiotic agents; Z88.8 Allergy status to other drugs, medicaments and biological substances; Z90.710 Acquired absence of both cervix and uterus; Z98.890 Other specified postprocedural states

== ENCOUNTER → 2023-05-05 | Outpatient (CLI) | payer MEDICARE, BC ==
[2023-05-05 11:10] LABS: BASO % 0.5 % (0.0-1.0); EOS # 0.3 10*3/uL (0.0-0.4); EOS % 4.4 % (1.0-4.0); HEMATOCRIT 32.9 % (37.0-47.0); LYMPH # 1.2 10*3/uL (1.3-4.4); LYMPH % 15.3 % (27.0-41.0); MEAN CELL VOLUME 102.8 fl (81.0-99.0); MEAN CORPUSCULAR HGB 32.5 pg (27.0-31.0); MEAN CORPUSCULAR HGB CONC 31.6 g/dl (33.0-37.0); MEAN PLATELET VOLUME 9.8 fl (9.6-12.3); MONO # 0.7 10*3/uL (0.1-1.0); MONO % 9.2 % (3.0-9.0); NEUT # 5.3 10*3/uL (2.3-7.9); NEUT % 69.8 % (47.0-73.0); PLATELET COUNT AUTOMATED 268 10*3/uL (130-400); RED CELL DISTRI WIDTH 14.7 % (0-14.5); WHITE BLOOD COUNT 7.5 10*3/uL (4.8-10.8)
[2023-05-05 11:29] LABS: BILIRUBIN Negative (Negative); BLOOD Trace-Lysed (Negative); CLARITY Clear (Clear); COLOR Yellow (Yellow); GLUCOSE Trace (Negative); KETONE Negative (Negative); LEUKO ESTERASE Negative (Negative); NITRITE Negative (Negative); SPECIFIC GRAVITY 1.015 (1.001-1.030); UROBILINOGEN 0.2 E.U./dl (0.0-1.0)
[2023-05-05 11:54] LABS: ALKALINE PHOSPHATASE 117 U/L (46-116); BUN 35 mg/dl (9-23); CHLORIDE 110 mmol/L (98-107); POTASSIUM 4.4 mmol/L (3.4-5.1); TOTAL PROTEIN 7.3 gm/dL (6.0-8.0)
[2023-05-05 11:55] LABS: SGPT/ALT < 7 U/L (5-49)
[2023-05-05 12:06] LABS: HYALINE CAST 0-2; RBC 0-2 rbc/hpf (0-2)
[2023-05-05 12:07] LABS: BACTERIA 2+
== END | disposition home or self-care (01) ==
LOC: LAB 04-30 03:28 → CT 04-30 11:00 → LAB 04-30 11:00
PROVIDERS: ATTEND Urology
DX: N26.1 Atrophy of kidney (terminal) (principal); K44.9 Diaphragmatic hernia without obstruction or gangrene; K80.20 Calculus of gallbladder without cholecystitis without obstruction; N20.0 Calculus of kidney; K57.30 Diverticulosis of large intestine without perforation or abscess without bleeding; I12.9 Hypertensive chronic kidney disease with stage 1 through stage 4 chronic kidney disease, or unspecified chronic kidney disease; N18.9 Chronic kidney disease, unspecified; N28.1 Cyst of kidney, acquired

== ENCOUNTER → 2023-05-27 | Outpatient (CLI) | payer MEDICARE, BC ==
[2023-05-27 11:47] LABS: BASO # 0.1 10*3/uL (0.0-0.1); BASO % 0.9 % (0.0-1.0); EOS # 0.4 10*3/uL (0.0-0.4); EOS % 5.3 % (1.0-4.0); HEMATOCRIT 32.8 % (37.0-47.0); LYMPH # 0.9 10*3/uL (1.3-4.4); LYMPH % 12.1 % (27.0-41.0); MEAN CELL VOLUME 103.8 fl (81.0-99.0); MEAN CORPUSCULAR HGB 32.6 pg (27.0-31.0); MEAN CORPUSCULAR HGB CONC 31.4 g/dl (33.0-37.0); MEAN PLATELET VOLUME 9.8 fl (9.6-12.3); MONO # 0.7 10*3/uL (0.1-1.0); MONO % 10.3 % (3.0-9.0); NEUT % 70.8 % (47.0-73.0); PLATELET COUNT AUTOMATED 314 10*3/uL (130-400); RED BLOOD COUNT 3.16 10*6/uL (4.10-5.10); RED CELL DISTRI WIDTH 15.4 % (0-14.5)
[2023-05-27 11:58] LABS: ACT PARTIAL THROMBO TIME 31.6 SECONDS (20.0-32.1)
[2023-05-27 12:15] LABS: ALKALINE PHOSPHATASE 78 U/L (46-116); BUN 33 mg/dl (9-23); CHLORIDE 112 mmol/L (98-107); POTASSIUM 4.2 mmol/L (3.4-5.1); TOTAL PROTEIN 7.3 gm/dL (6.0-8.0)
[2023-05-27 12:19] LABS: SGPT/ALT < 7 U/L (5-49)
== END | disposition home or self-care (01) ==
LOC: LAB 02:45
PROVIDERS: ATTEND Urology
DX: Z01.818 Encounter for other preprocedural examination (principal); J98.11 Atelectasis; I70.0 Atherosclerosis of aorta; J84.89 Other specified interstitial pulmonary diseases

== ENCOUNTER → 2023-07-09 | Outpatient (CLI) | payer MEDICARE, BC | END | disposition home or self-care (01) | LOC: CARD 00:47 | PROVIDERS: ATTEND Family Medicine | DX: I08.8 Other rheumatic multiple valve diseases (principal); R01.1 Cardiac murmur, unspecified; I21.3 ST elevation (STEMI) myocardial infarction of unspecified site ==

== ENCOUNTER 2023-07-28 11:32 | Emergency (ER) | payer MEDICARE, BC ==
[~2023-07-28] VITALS: Ht 172.7 cm; Wt 79.4 kg
[2023-07-28] MEDS ORDERED: VIBRAMYCIN100 MG PO (14:57)
== END 2023-07-28 15:18 | disposition home or self-care (01) ==
LOC: ED 11:32
DX: K57.32 Diverticulitis of large intestine without perforation or abscess without bleeding (principal); J44.9 Chronic obstructive pulmonary disease, unspecified; I12.9 Hypertensive chronic kidney disease with stage 1 through stage 4 chronic kidney disease, or unspecified chronic kidney disease; N18.9 Chronic kidney disease, unspecified; Z88.1 Allergy status to other antibiotic agents; Z88.8 Allergy status to other drugs, medicaments and biological substances; Z90.49 Acquired absence of other specified parts of digestive tract; Z98.890 Other specified postprocedural states

== ENCOUNTER 2024-02-20 15:01 | Inpatient (IN) | payer MEDICARE, BC ==
[~2024-02-20] VITALS: Ht 172.7 cm; Wt 78.5 kg
[~2024-02-20 15:01] MED LIST changes: +VIBRAMYCIN100 MG PO
[2024-02-20] MEDS ORDERED: Ondansetron Hydrochloride 4 MG/2 ML VIAL IV ONE (15:10)
[2024-02-20 15:14] VITALS: BP 152/66
[2024-02-20] MEDS ORDERED: PEPCID20 MG PO (15:19)
[2024-02-20] MEDS ORDERED: SYMB160 INH (15:19)
[2024-02-20 15:24] LABS: BASO # 0.1 10*3/uL (0.0-0.1); BASO % 0.7 % (0.0-1.0); EOS # 0.3 10*3/uL (0.0-0.4); EOS % 2.8 % (1.0-4.0); HEMATOCRIT 31.1 % (37.0-47.0); MEAN CELL VOLUME 106.1 fl (81.0-99.0); MEAN CORPUSCULAR HGB 32.4 pg (27.0-31.0); MEAN CORPUSCULAR HGB CONC 30.5 g/dl (33.0-37.0); MEAN PLATELET VOLUME 9.4 fl (9.6-12.3); MONO # 0.7 10*3/uL (0.1-1.0); MONO % 7.6 % (3.0-9.0); NEUT # 5.2 10*3/uL (2.3-7.9); NEUT % 58.7 % (47.0-73.0); PLATELET COUNT AUTOMATED 385 10*3/uL (130-400); RED BLOOD COUNT 2.93 10*6/uL (4.10-5.10); RED CELL DISTRI WIDTH 14.4 % (0-14.5); WHITE BLOOD COUNT 8.8 10*3/uL (4.8-10.8)
[2024-02-20 15:46] LABS: POTASSIUM 4.3 mmol/L (3.4-5.1)
[2024-02-20] MEDS ORDERED: SODIUM CHLORIDE 0.9% 1,000 ML IV ONE (16:00)
[2024-02-20 16:17] VITALS: BP 130/65
[2024-02-20 19:23] VITALS: BP 121/58
[2024-02-20] MEDS ORDERED: BUDESONIDE 0.5 MG AMP NEB SCH (19:40)
[2024-02-20] MEDS ORDERED: Albuterol Sulfate 2.5 MG/3 ML VIAL NEB SCH (19:40)
[2024-02-20 20:25] VITALS: BP 151/58
[2024-02-20 20:42] VITALS: BP 151/58
[2024-02-20] MEDS ORDERED: Budesonide/Formoterol Fumarate 160/4.5 inhaler INH SCH (22:00)
[2024-02-21] VITALS: BP 120/54
[2024-02-21 05:46] LABS: POTASSIUM 5.2 mmol/L (3.4-5.1)
[2024-02-21] MEDS ORDERED: Levothyroxine Sodium 125 MCG TAB PO SCH (06:00)
[2024-02-21 06:04] LABS: BASO # 0.1 10*3/uL (0.0-0.1); BASO % 0.7 % (0.0-1.0); EOS # 0.2 10*3/uL (0.0-0.4); EOS % 1.8 % (1.0-4.0); HEMATOCRIT 27.2 % (37.0-47.0); MEAN CELL VOLUME 107.1 fl (81.0-99.0); MEAN CORPUSCULAR HGB 32.7 pg (27.0-31.0); MEAN CORPUSCULAR HGB CONC 30.5 g/dl (33.0-37.0); MEAN PLATELET VOLUME 10.2 fl (9.6-12.3); MONO # 0.7 10*3/uL (0.1-1.0); MONO % 7.5 % (3.0-9.0); NEUT # 6.7 10*3/uL (2.3-7.9); NEUT % 70.9 % (47.0-73.0); PLATELET COUNT AUTOMATED 381 10*3/uL (130-400); RED BLOOD COUNT 2.54 10*6/uL (4.10-5.10); RED CELL DISTRI WIDTH 14.3 % (0-14.5); WHITE BLOOD COUNT 9.5 10*3/uL (4.8-10.8)
[2024-02-21 08:00] VITALS: BP 127/48
[2024-02-21] MEDS ORDERED: ALLOPURINOL 100 MG TAB PO SCH (10:00)
[2024-02-21] MEDS ORDERED: Losartan Potassium 50 MG TAB PO SCH (10:00)
[2024-02-21] MEDS ORDERED: FAMOTIDINE 20 MG TAB PO SCH (10:00)
[2024-02-21] MEDS ORDERED: SODIUM BICARBONATE 650 MG TAB PO SCH (10:00)
[2024-02-21] MEDS ORDERED: LACTULOSE 20 GM/30 ML UDC PO SCH (10:00)
[2024-02-21] MEDS ORDERED: amLODIPine besylate 10 MG TAB PO SCH (10:00)
[2024-02-21] MEDS ORDERED: APIXABAN 2.5 MG TABLET PO SCH (10:00)
[2024-02-21 12:00] VITALS: BP 121/66
[2024-02-21 16:32] VITALS: BP 127/52
[2024-02-22] VITALS: BP 131/64
[2024-02-22 05:59] LABS: POTASSIUM 4.9 mmol/L (3.4-5.1)
[2024-02-22 08:00] VITALS: BP 133/59
[2024-02-22 12:00] VITALS: BP 135/56
[2024-02-22 16:00] VITALS: BP 128/51
== END 2024-02-22 17:45 | disposition home or self-care (01) | DRG 73 ==
LOC: ED 15:01 → EDHOLD 16:50 → 4E 19:48
PROVIDERS: Emergency Medicine; ADMIT Internal Medicine; ATTEND Internal Medicine
DX: G90.89 Other disorders of autonomic nervous system (principal); N18.6 End stage renal disease; I12.0 Hypertensive chronic kidney disease with stage 5 chronic kidney disease or end stage renal disease; K57.32 Diverticulitis of large intestine without perforation or abscess without bleeding; N17.9 Acute kidney failure, unspecified; E87.5 Hyperkalemia; K59.00 Constipation, unspecified; R62.7 Adult failure to thrive; Z79.01 Long term (current) use of anticoagulants; M1A.9XX0 Chronic gout, unspecified, without tophus (tophi); E03.9 Hypothyroidism, unspecified; K21.00 Gastro-esophageal reflux disease with esophagitis, without bleeding; J44.9 Chronic obstructive pulmonary disease, unspecified; Z88.1 Allergy status to other antibiotic agents; Z88.8 Allergy status to other drugs, medicaments and biological substances; Z79.899 Other long term (current) drug therapy

== ENCOUNTER 2024-05-14 10:33 | Emergency (ER) | payer MEDICARE, BC ==
[~2024-05-14] VITALS: Ht 172.7 cm; Wt 76.2 kg
[~2024-05-14 10:33] MED LIST changes: +PEPCID20 MG PO; +SYMB160 INH
[2024-05-14] MEDS ORDERED: ACETAMINOPHEN 325 MG TAB PO ONE (12:10)
== END 2024-05-14 12:49 | disposition home or self-care (01) ==
LOC: ED 10:33
DX: S02.2XXA Fracture of nasal bones, initial encounter for closed fracture (principal); S01.511A Laceration without foreign body of lip, initial encounter; J34.2 Deviated nasal septum; Z88.1 Allergy status to other antibiotic agents; Z88.8 Allergy status to other drugs, medicaments and biological substances; Z79.899 Other long term (current) drug therapy; Z90.710 Acquired absence of both cervix and uterus; Z98.890 Other specified postprocedural states; W18.09XA Striking against other object with subsequent fall, initial encounter; Y93.89 Activity, other specified; Y92.480 Sidewalk as the place of occurrence of the external cause; Y99.8 Other external cause status

== ENCOUNTER 2025-01-27 07:37 | Emergency (ER) | payer MEDICARE, BC ==
[~2025-01-27] VITALS: Ht 172.7 cm; Wt 78.5 kg
[2025-01-27 08:26] LABS: BASO # 0.1 10*3/uL (0.0-0.1); BASO % 1.3 % (0.0-1.0); EOS # 0.2 10*3/uL (0.0-0.4); EOS % 3.2 % (1.0-4.0); MEAN CELL VOLUME 103.9 fl (81.0-99.0); MEAN CORPUSCULAR HGB 34.5 pg (27.0-31.0); MEAN PLATELET VOLUME 8.8 fl (9.6-12.3); MONO # 0.7 10*3/uL (0.1-1.0); MONO % 11.0 % (3.0-9.0); NEUT # 3.7 10*3/uL (2.3-7.9); NEUT % 59.5 % (47.0-73.0); NUCLEATED RED BLOOD CELL 0.0 % (0.0-0.0); NUCLEATED RED BLOOD CELL 0.0 10*3/uL (0.0-0.0); PLATELET COUNT AUTOMATED 220 10*3/uL (130-400); RED CELL DISTRI WIDTH 15.0 % (0-14.5)
[2025-01-27 09:05] LABS: BUN 16 mg/dl (9-23)
[2025-01-27 09:10] LABS: SGPT/ALT < 7 U/L (5-49)
== END 2025-01-27 11:32 | disposition home or self-care (01) ==
LOC: ED
PROVIDERS: Emergency Medicine
DX: M54.2 Cervicalgia (principal); Z88.1 Allergy status to other antibiotic agents; Z88.8 Allergy status to other drugs, medicaments and biological substances